=== PATIENT | female | born 1990 | race Two or more races ===

== ENCOUNTER 2020-02-04 11:07 | Outpatient (CLI) | payer BC | END 2020-02-04 23:59 | disposition home or self-care (01) | LOC: MSC 11:07 | PROVIDERS: ATTEND Internal Medicine | DX: Z00.00 Encounter for general adult medical examination without abnormal findings (principal); Z80.9 Family history of malignant neoplasm, unspecified ==

== ENCOUNTER 2020-02-05 08:12 | Outpatient (CLI) | payer BC ==
[2020-02-05 09:14] LABS: BASOPHILS % (AUTO) 0.4 % (0.0-2.0); EOSINOPHILS % (AUTO) 2.8 % (0.0-6.0); HEMATOCRIT 38 % (33-45); HEMOGLOBIN 12.2 g/dL (11.5-14.8); LYMPHOCYTES # (AUTO) 1.4 /CMM (0.8-4.8); MEAN CORPUSCULAR HGB CONC 32 g/dl (31.0-36.0); MEAN CORPUSCULAR VOLUME 85 fL (82-100); MONOCYTES # (AUTO) 0.5 /CMM (0.1-1.30); MONOCYTES % (AUTO) 6.8 % (2.0-12.0); NEUTROPHILS # (AUTO) 4.8 /CMM (1.8-8.9); PLATELET COUNT (AUTO) 255 /CMM (150-450); RED BLOOD CELL COUNT(AUTO) 4.47 MIL/uL (4.0-5.2); WHITE BLOOD COUNT (AUTO) 6.9 K/uL (4.3-11.0)
[2020-02-05 09:39] LABS: APPEARANCE,URINE CLEAR (CLEAR); BILIRUBIN,URINE NEGATIVE (NEGATIVE); BLOOD, URINE TRACE-INTA Ery/uL (NEGATIVE); COLOR,URINE YELLOW (YELLOW); KETONES,URINE NEGATIVE (NEGATIVE); LEUKOCYTE ESTERASE ,URINE NEGATIVE (NEGATIVE); NITRITE, URINE NEGATIVE (NEGATIVE); PROTEIN,URINE NEGATIVE (NEGATIVE); UGLUCOSE NEGATIVE (NEGATIVE); UROBILINOGEN,URINE 0.2 EU/dL (0.2)
[2020-02-05 09:44] LABS: BACTERIA,URINE Few /HPF (None Seen); WBC,URINE 0-2 /HPF (0-3)
[2020-02-05 10:37] LABS: CALCIUM, SERUM 8.8 mg/dL (8.5-10.1); CREATININE 0.9 mg/dL (0.6-1.3); POTASSIUM 4.5 mmol/L (3.5-5.1)
[2020-02-05 14:11] LABS: ALBUMIN 3.9 g/dL (3.4-5.0); BILIRUBIN,DIRECT 0.1 mg/dL (0.0-0.2); BILIRUBIN,TOTAL 0.3 mg/dL (0.2-1.0); TOTAL PROTEIN, SERUM 7.5 g/dL (6.4-8.2)
[2020-02-05 15:15] LABS: THYROID STIMULATING HORMONE 0.647 uIU/mL (0.358-3.74)
== END 2020-02-05 23:59 | disposition home or self-care (01) ==
LOC: LAB 08:12
PROVIDERS: ATTEND Internal Medicine
DX: Z00.00 Encounter for general adult medical examination without abnormal findings (principal); Z11.59 Encounter for screening for other viral diseases
CPT/HCPCS: 36415; 80048; 80061; 80076; 81001; 82728; 83540; 84439; 84443; 85025; C9803; U0003; 81000-TC

== ENCOUNTER 2021-10-31 11:44 | Outpatient (CLI) | payer BC ==
[2021-10-31 12:09] LABS: BASOPHILS % (AUTO) 0.4 % (0.0-2.0); EOSINOPHILS % (AUTO) 2.8 % (0.0-6.0); HEMATOCRIT 37 % (33-45); HEMOGLOBIN 12.1 g/dL (11.5-14.8); LYMPHOCYTES % (AUTO) 33.2 % (20.0-44.0); MEAN CORPUSCULAR HGB CONC 33 g/dl (31.0-36.0); MEAN CORPUSCULAR VOLUME 84 fL (82-100); MONOCYTES # (AUTO) 0.5 K/uL (0.1-1.30); MONOCYTES % (AUTO) 7.7 % (2.0-12.0); NEUTROPHILS # (AUTO) 3.4 K/uL (1.8-8.9); NEUTROPHILS % (AUTO) 55.9 % (43.0-81.0); PLATELET COUNT (AUTO) 246 K/uL (150-450); RED BLOOD CELL COUNT(AUTO) 4.39 MIL/uL (4.0-5.2)
[2021-10-31 12:11] LABS: BILIRUBIN,URINE NEGATIVE (NEGATIVE); COLOR,URINE YELLOW (YELLOW); LEUKOCYTE ESTERASE ,URINE NEGATIVE (NEGATIVE); NITRITE, URINE NEGATIVE (NEGATIVE); PROTEIN,URINE NEGATIVE (NEGATIVE); UGLUCOSE NEGATIVE (NEGATIVE); UROBILINOGEN,URINE 0.2 EU/dL (0.2)
[2021-10-31 12:40] LABS: ALBUMIN 3.6 g/dL (3.4-5.0); BILIRUBIN,DIRECT 0.1 mg/dL (0.0-0.2); BILIRUBIN,TOTAL 0.3 mg/dL (0.2-1.0); TOTAL PROTEIN, SERUM 7.5 g/dL (6.4-8.2)
[2021-10-31 12:49] LABS: BACTERIA,URINE Few /HPF (None Seen); SQUAMOUS EPITHELIAL CELL,UR Moderate /HPF (None Seen); THYROID STIMULATING HORMONE 0.794 uIU/mL (0.358-3.74)
== END 2021-10-31 23:59 | disposition home or self-care (01) ==
LOC: LAB 11:44
PROVIDERS: ATTEND Internal Medicine
DX: Z00.00 Encounter for general adult medical examination without abnormal findings (principal); Z20.822 Contact with and (suspected) exposure to COVID-19
CPT/HCPCS: 36415; 80061-TC; 80076-TC; 81001; 83540-TC; 84443-TC; 85025-TC

== ENCOUNTER 2021-12-06 10:40 | Outpatient (CLI) | payer BC | END 2021-12-06 23:59 | disposition home or self-care (01) | LOC: MSC 10:40 | PROVIDERS: ATTEND Internal Medicine | DX: Z00.00 Encounter for general adult medical examination without abnormal findings (principal) ==

== ENCOUNTER 2022-06-27 08:58 | Emergency (ER) | payer BC, OTHER ==
[~2022-06-27] VITALS: Ht 160 cm; Wt 74.8 kg
--- NOTE | 2022-06-27 09:09 | NUR ---
LEFT WRIST PAIN/SWELLING SINCE SHE ARRIVED HOME YESTERDAY,DENIES ANY TRAUMA
--- NOTE | 2022-06-27 09:12 | NUR ---
DR HARTMAN AT BEDSIDE
--- NOTE | 2022-06-27 09:20 | NUR ---
PT SIGNED WAIVER
[2022-06-27] MEDS ORDERED: KETOROLAC TROMETHAMINE INJ 30 MG/ML VIAL ONE (09:22)
--- NOTE | 2022-06-27 09:25 | NUR ---
NEONATAL INTENSIVE CARE NURSE AT BEDSIDE FOR XRAY
[2022-06-27] MEDS ORDERED: KETOROLAC TROMETHAMINE INJ 30 MG/ML VIAL IM ONE (09:30)
[2022-06-27] MEDS ORDERED: KETO10TA2 PO (10:36)
[2022-06-27] MEDS ORDERED: CYCL5TAB PO (10:36)
[2022-06-27] MEDS ORDERED: PRED20TA PO (10:36)
[2022-06-27 10:41] VITALS: BP 133/79
--- NOTE | 2022-06-27 10:41 | NUR ---
Patient discharged to home in stable condition. Written and verbal after care instructions given. Patient verbalizes understanding of instruction.
== END 2022-06-27 10:42 | disposition home or self-care (01) ==
LOC: ER 09:01
DX: G56.32 Lesion of radial nerve, left upper limb (principal); Z79.899 Other long term (current) drug therapy
CPT/HCPCS: 99283; 29125; 73110; 96372; J1885